=== PATIENT | male | born 1970 | race Two or more races ===

== ENCOUNTER 2022-08-16 11:06 | Emergency (ER) | payer OTHER ==
[~2022-08-16] VITALS: Ht 165.1 cm; Wt 69.9 kg
--- NOTE | 2022-08-16 11:07 | NUR ---
[id number] FRM BUS STOP, "ETOH". VITALS ARE WITHIN NORMAL LIMITS, NO MEDICAL COMPLAINTS. PT UNDER ER OBSERVATION.
--- NOTE | 2022-08-16 12:00 | NUR ---
URINE SAMPLE COLLECTED AND SENT TO LAB
--- NOTE | 2022-08-16 12:30 | NUR ---
Lunch given- tolerated well. Ate 100%
[2022-08-16 15:14] VITALS: BP 118/67
--- NOTE | 2022-08-16 15:16 | NUR ---
Ambulated- BRP. [place]. Refusing half-way placement - Resources given. Re-evaluated by Dr Garcia- Patient discharged to home in stable condition. Written and verbal after care instructions given. Patient verbalizes understanding of instruction.
== END 2022-08-16 15:15 | disposition home or self-care (01) ==
LOC: ER 11:09
DX: F10.129 Alcohol abuse with intoxication, unspecified (principal); Y90.9 Presence of alcohol in blood, level not specified

== ENCOUNTER 2022-08-21 12:17 | Emergency (ER) | payer OTHER ==
[~2022-08-21] VITALS: Ht 170.2 cm; Wt 77.1 kg
--- NOTE | 2022-08-21 13:11 | NUR ---
Sleeping soundly easily awakened to verbal stimuli NO obvious distress. Resp even/UNlabored
--- NOTE | 2022-08-21 14:00 | NUR ---
Awake- Given Lunch- Tolerated 100%
--- NOTE | 2022-08-21 15:27 | NUR ---
BRP- gait even and steady. For discharge- Patient discharged to home/previous living condition in stable condition. Written and verbal after care instructions given. Refused to sign- Eloped
[2022-08-21 15:49] VITALS: BP 105/62
== END 2022-08-21 15:49 | disposition home or self-care (01) ==
LOC: ER 12:19
DX: Z59.00 Homelessness unspecified (principal); F10.129 Alcohol abuse with intoxication, unspecified; Y90.9 Presence of alcohol in blood, level not specified